=== PATIENT | female | born 1980 | race Caucasian/White ===

== ENCOUNTER 2023-06-21 13:21 | Observation (INO) | payer BC ==
--- NOTE | 2023-06-21 14:17 | ED ---
Abdominal Pain HPI - General Source: patient, RN notes reviewed Mode of arrival: wheelchair Limitations: no limitations - History of Present Illness MD Complaint: abdominal pain <Jeannie Melendez - Last Filed: 06/21/23 14:15> - General Source: patient, RN notes reviewed Limitations: no limitations <Jasmin Myers - Last Filed: 06/21/23 18:38> <Neo Jenkins - Last Filed: 06/21/23 21:19> - General Chief Complaint: Abdominal Pain Stated Complaint: ABD Pain, Vomiting Time Seen by Provider: 06/21/23 14:12 - History of Present Illness Initial Comments: This is a 43-year-old female who presents to the emergency department for nausea, vomiting, and abdominal pain. States that she developed generalized abdominal pain starting this morning with the nausea and vomiting. Denies any blood in her vomit or changes in bowel/bladder habits. Also denies any fevers or chills. (Jeannie Melendez) Patient is a pleasant 43-year-old female presenting to the emergency room with complaints of severe abdominal pain which is not generalized however began in the left lower quadrant with associated nausea and vomiting. She has not had a bowel movement yesterday but this is not a common for her and she denies any concerns for constipation. She has not had any diarrhea. She reports that the symptoms have gotten progressively worse throughout the day and that her emesis is bilingual color with no blood or coffee grounds noted. She denies any other complaints or concerns including any chest pain, shortness of breath, dysuria, hematuria, urinary frequency, altered mental status, fevers or chills. She is due for her menstrual cycle at the end of the month and her partner had a vasectomy. She is immune compromised as she is on tamoxifen for history of [place] cancer. She has no other significant past medical history. (Jasmin Myers) - Related Data Home Medications Medication Instructions Recorded Confirmed Cholecalciferol [Vitamin D3 (25 25 mcg PO DAILY 06/21/23 06/21/23 Mcg = 1000 Iu)] Lisdexamfetamine Dimesylate 40 mg PO DAILY 06/21/23 06/21/23 [Vyvanse] Tamoxifen Citrate [Nolvadex] 20 mg PO DAILY 06/21/23 06/21/23 Allergies Allergy/AdvReac Type Severity Reaction Status Date / Time No Known Allergies Allergy Verified 06/21/23 19:31 Review of Systems ROS Other: All systems not noted in ROS Statement are negative. <Jeannie Melendez - Last Filed: 06/21/23 14:15> ROS Other: All systems not noted in ROS Statement are negative. <Jasmin Myers - Last Filed: 06/21/23 18:38> ROS Other: All systems not noted in ROS Statement are negative. <Neo Jenkins - Last Filed: 06/21/23 21:19> ROS Statement: Those systems with pertinent positive or pertinent negative responses have been documented in the HPI. Past Medical History Past Medical History: Cancer Additional Past Medical History / Comment(s): tamoxifan- breast cancer History of Any Multi-Drug Resistant Organisms: None Reported Additional Past Surgical History / Comment(s): D/C Past Psychological History: No Psychological Hx Reported Smoking Status: Never smoker Past Alcohol Use History: Occasional Past Drug Use History: None Reported <Jeannie Melendez - Last Filed: 06/21/23 14:15> Past Medical History: Cancer History of Any Multi-Drug Resistant Organisms: None Reported <Jasmin Myers - Last Filed: 06/21/23 18:38> General Exam Limitations: no limitations <Jeannie Melendez - Last Filed: 06/21/23 14:15> Limitations: no limitations General appearance: alert, in no apparent distress Head exam: Present: atraumatic, normocephalic, normal inspection Eye exam: Present: normal appearance, PERRL, EOMI. Absent: scleral icterus, conjunctival injection, periorbital swelling ENT exam: Present: normal exam, mucous membranes moist Neck exam: Present: normal inspection, full ROM Respiratory exam: Present: normal lung sounds bilaterally. Absent: respiratory distress, wheezes, rales, rhonchi, stridor Cardiovascular Exam: Present: regular rate, normal rhythm, normal heart sounds. Absent: systolic murmur, diastolic murmur, rubs, gallop, clicks GI/Abdominal exam: Present: soft, tenderness (Left lower quadrant), normal bowel sounds, other (Interval reassessment of the abdomen after computed tomography scan reveals resolution of left lower quadrant pain was severe right lower quadrant tenderness.). Absent: distended, guarding, rebound, rigid Extremities exam: Present: normal inspection. Absent: pedal edema, joint swelling Back exam: Present: normal inspection Neurological exam: Present: alert, oriented X3, CN II-XII intact Psychiatric exam: Present: normal affect, normal mood Skin exam: Present: warm, dry, intact, normal color. Absent: rash <Jasmin Myers - Last Filed: 06/21/23 18:38> - General Exam Comments Initial Comments: Visual Physical Exam Vital signs reviewed General: Well-appearing, nontoxic, no acute distress. Head: Normocephalic, atraumatic Eyes: PERRLA, EOMI ENT: Airway patent Chest: Nonlabored breathing Skin: No visual rash, normal skin tone Neuro: Alert and oriented 3 Musculoskeletal: No gross abnormalities (Jeannie Melendez) Course Vital Signs 06/21/23 06/21/23 06/21/23 13:22 13:26 13:27 Temperature 98.2 F Pulse Rate 61 Respiratory 16 16 Rate Blood Pressure 111/73 O2 Sat by Pulse 99 Oximetry 06/21/23 06/21/23 19:54 20:38 Temperature Pulse Rate 65 65 Respiratory 16 18 Rate Blood Pressure 99/62 100/60 O2 Sat by Pulse 100 98 Oximetry Medical Decision Making <Jeannie Melendez - Last Filed: 06/21/23 14:15> - Lab Data Result diagrams: 06/21/23 15:18 06/21/23 15:18 - Radiology Data Radiology results: report reviewed, image reviewed <Jasmin Myers - Last Filed: 06/21/23 18:38> - Lab Data Result diagrams: 06/21/23 15:18 06/21/23 15:18 - EKG Data -: EKG Interpreted by Me <Neo Jenkins - Last Filed: 06/21/23 21:19> - Medical Decision Making I performed the QuickNote portion of this chart. Signed Jeannie Melendez PA-C. (Jeannie Melendez) Was pt. sent in by a medical professional or institution ([facility], HEAD RIGGER, urgent care, hospital, or shelter...) When possible be specific @ -No Did you speak to anyone other than the patient for history (EMS, parent, family, police, friend...)? What history was obtained from this source @ -No Did you review nursing and triage notes (agree or disagree)? Why? @ -I reviewed and agree with nursing and triage notes Were old charts reviewed (outside hosp., previous admission, EMS record, old EKG, old radiological studies, urgent care reports/EKG's, shelter records)? Report findings @ -No old charts were reviewed Differential Diagnosis (chest pain, altered mental status, abdominal pain women, abdominal pain men, vaginal bleeding, weakness, fever, dyspnea, syncope, headache, dizziness, GI bleed, back pain, seizure, CVA, palpatations, mental health, musculoskeletal)? @ -Differential Abdominal Pain Women: Appendicitis, Cholecystitis, diverticulosis, ischemic bowel, pancreatitis, hepatitis, UTI, gastroenteritis, AAA, incarcerated hernia, bowel obstruction, constipation, inflammatory bowel, hepatitis, peptic ulcer disease, splenic infarction, perforated viscus, vulvitis, ovarian torsion, PID, kidney stone, roel centa abruption, this is not meant to be an all-inclusive list EKG interpreted by me (3pts min.). @ -None done X-rays interpreted by me (1pt min.). @ -None done CT interpreted by me (1pt min.). @ -None done U/S interpreted by me (1pt. min.). @ -None done What testing was considered but not performed or refused? (CT, X-rays, U/S, labs)? Why? @ -None What meds were considered but not given or refused? Why? @ -None Did you discuss the management of the patient with other professionals (professionals i.e. , PA, HEAD RIGGER, lab, RT, psych nurse, social science teacher, muffle worker, teacher, commanding officer traffic division, continuous pillowcase cutter)? Give summary @ -No Was smoking cessation discussed for >3mins.? @ -No Was critical care preformed (if so, how long)? @ -No Were there social determinants of health that impacted care today? How? (Homelessness, low income, unemployed, alcoholism, drug addiction, transportation, low edu. Level, literacy, decrease access to med. care, longterm, rehab)? @ -No Was there de-escalation of care discussed even if they declined (Discuss DNR or withdrawal of care, Hospice)? DNR status @ -No What co-morbidities impacted this encounter? (DM, HTN, Smoking, COPD, CAD, Ca ncer, CVA, ARF, Chemo, Hep., AIDS, mental health diagnosis, sleep apnea, morbid obesity)? @ -None Was patient admitted / discharged? Hospital course, mention meds given and route, prescriptions, significant lab abnormalities, going to OR and other pertinent info. @ -Triaging provider started workup and saline lock placement. Orders for CMP, CBC, amylase, lipase, lactic acid and urinalysis with reflex culture all ordered; will additionally add 4 plex and qualitative urine and continues to have nausea vomiting and abdominal pain will give 1 L IV fluid bolus along with Zofran for nausea and morphine for pain. Pain down to 3 out of 10 with morphine and nausea resolved. Tolerated IV fluid bolus well. Laboratory studies revealed elevated WBC of 16.5 with neutrophils at 15.3 and low lymphocytes of 0.6. Lactic acid is normal total bilirubin is elevated at 1.7 remaining liver enzymes AST ALT and alkaline phosphatase all normal. Amylase and lipase normal, sodium low at 136 other electrolytes are normal. No history of diverticulosis will proceed with CT of the abdomen and pelvis with contrast given leukocytosis with left lower quadrant pain initially that has now localized to the right lower quadrant. Computed tomography scan reveals early appendicitis which is clinically correlated findings. These findings were discussed with patient's at the bedside. Advise recommended admission for acute appendicitis with initiation of nothing by mouth status, IV hydration Zosyn antibiotic. My attending spoke with Dr. Potter regarding patient presentation recommendation for admission. Advised of orders placed. She has no further orders at this time. Will admit patient to medical surgical unit under general surgery for further evaluation and treatment of acute appendicitis. Undiagnosed new problem with uncertain prognosis? @ -No Drug Therapy requiring intensive monitoring for toxicity (Heparin, Nitro, Insulin, Cardizem)? @ -No Were any procedures done? @ -No Diagnosis/symptom? @ -Appendicitis Acute, or Chronic, or Acute on Chronic? @ -Acute Uncomplicated (without systemic symptoms) or Complicated (systemic symptoms)? @ -Complicated Side effects of treatment? @ -No Exacerbation, Progression, or Severe Exacerbation? @ -No Poses a threat to life or bodily function? How? (Chest pain, [place], [place], pneumonia, PE, COPD, DKA, ARF, appy, cholecystitis, CVA, Diverticulitis, Homicidal, Suicidal, threat to staff... and all critical care pts) @ Yes, at risk for worsening infection and perforation Case discussed with Dr. Jenkins. (Jasmin Myers) I spoke with the admitting physician, Dr. Dsouza who accepted the admission. Requested medicine be consulted which they were. Requested patient be made nothing by mouth except for popsicles and ice chips. Was in agreement with other treatment. Patient started on Zosyn as well as IV fluids. (Neo Jenkins) - Lab Data Lab Results 06/21/23 06/21/23 06/21/23 Range/Units 15:18 15:18 16:10 WBC 16.5 H (3.8-10.6) k/uL RBC 4.29 (3.80-5.40) m/uL Hgb 13.5 (11.4-16.0) gm/dL Hct 40.4 (34.0-46.0) % MCV 94.3 (80.0-100.0) fL MCH 31.5 (25.0-35.0) pg MCHC 33.4 (31.0-37.0) g/dL RDW 12.5 (11.5-15.5) % Plt Count 222 (150-450) k/uL MPV 8.2 Neutrophils % 93 % Lymphocytes % 3 % Monocytes % 3 % Eosinophils % 0 % Basophils % 0 % Neutrophils # 15.3 H (1.3-7.7) k/uL Lymphocytes # 0.6 L (1.0-4.8) k/uL Monocytes # 0.5 (0-1.0) k/uL Eosinophils # 0.1 (0-0.7) k/uL Basophils # 0.0 (0-0.2) k/uL Sodium 136 L (137-145) mmol/L Potassium 4.1 (3.5-5.1) mmol/L Chloride 103 (98-107) mmol/L Carbon Dioxide 25 (22-30) mmol/L Anion Gap 8 mmol/L BUN 12 (7-17) mg/dL Creatinine 0.66 (0.52-1.04) mg/dL Est GFR (CKD-EPI)AfAm >90 (>60 ml/min/1.73 sqM) Est GFR (CKD-EPI)NonAf >90 (>60 ml/min/1.73 sqM) Glucose 116 H (74-99) mg/dL Plasma Lactic Acid Forrest 0.7 (0.7-2.0) mmol/L Calcium 8.8 (8.4-10.2) mg/dL Total Bilirubin 1.7 H (0.2-1.3) mg/dL AST 33 (14-36) U/L ALT 23 (4-34) U/L Alkaline Phosphatase 55 (38-126) U/L Total Protein 7.4 (6.3-8.2) g/dL Albumin 4.1 (3.5-5.0) g/dL Amylase 56 (30-110) U/L Lipase 50 (23-300) U/L Urine Color Urine Appearance (Clear) Urine pH (5.0-8.0) Ur Specific [place] (1.001-1.035) Urine Protein (Negative) Urine Glucose (UA) (Negative) Urine Ketones (Negative) Urine Blood (Negative) Urine Nitrite (Negative) Urine Bilirubin (Negative) Urine Urobilinogen (<2.0) mg/dL Ur Leukocyte Esterase (Negative) Urine HCG, Qual (Not Detectd) Influenza Type A (PCR) (Not Detectd) Influenza Type B (PCR) (Not Detectd) RSV (PCR) (Not Detectd) SARS-CoV-2 (PCR) (Not Detectd) 06/21/23 06/21/23 06/21/23 Range/Units 16:10 17:04 17:04 WBC (3.8-10.6) k/uL RBC (3.80-5.40) m/uL Hgb (11.4-16.0) gm/dL Hct (34.0-46.0) % MCV (80.0-100.0) fL MCH (25.0-35.0) pg MCHC (31.0-37.0) g/dL RDW (11.5-15.5) % Plt Count (150-450) k/uL MPV Neutrophils % % Lymphocytes % % Monocytes % % Eosinophils % % Basophils % % Neutrophils # (1.3-7.7) k/uL Lymphocytes # (1.0-4.8) k/uL Monocytes # (0-1.0) k/uL Eosinophils # (0-0.7) k/uL Basophils # (0-0.2) k/uL Sodium (137-145) mmol/L Potassium (3.5-5.1) mmol/L Chloride (98-107) mmol/L Carbon Dioxide (22-30) mmol/L Anion Gap mmol/L BUN (7-17) mg/dL Creatinine (0.52-1.04) mg/dL Est GFR (CKD-EPI)AfAm (>60 ml/min/1.73 sqM) Est GFR (CKD-EPI)NonAf (>60 ml/min/1.73 sqM) Glucose (74-99) mg/dL Plasma Lactic Acid [place] (0.7-2.0) mmol/L Calcium (8.4-10.2) mg/dL Total Bilirubin (0.2-1.3) mg/dL AST (14-36) U/L ALT (4-34) U/L Alkaline Phosphatase (38-126) U/L Total Protein (6.3-8.2) g/dL Albumin (3.5-5.0) g/dL Amylase (30-110) U/L Lipase (23-300) U/L Urine Color Yellow Urine Appearance Clear (Clear) Urine pH 8.0 (5.0-8.0) Ur Specific [place] 1.026 (1.001-1.035) Urine Protein Trace H (Negative) Urine Glucose (UA) Negative (Negative) Urine Ketones 3+ H (Negative) Urine Blood Negative (Negative) Urine Nitrite Negative (Negative) Urine Bilirubin Negative (Negative) Urine Urobilinogen <2.0 (<2.0) mg/dL Ur Leukocyte Esterase Negative (Negative) Urine HCG, Qual Not Detected (Not Detectd) Influenza Type A (PCR) Not Detected (Not Detectd) Influenza Type B (PCR) Not Detected (Not Detectd) RSV (PCR) Not Detected (Not Detectd) SARS-CoV-2 (PCR) Not Detected (Not Detectd) - EKG Data EKG Comments: 12-lead Electrocardiogram Interpretation Note EKG was reviewed and interpreted by myself. 12-lead ECG performed at 1938 is interpreted by me as revealing normal sinus rhythm at a rate of 64 beats per minute. [place] is normal. GA interval is 146 ms, QRS duration is 80 ms, QTc is 410 ms.. There were no ST or T wave abnormalities to suggest myocardial ischemia or injury. R wave progression across the precordium was satisfactory. By my interpretation this EKG is non-diagnostic for acute ischemia. (Neo Jenkins) Disposition <Jeannie Melendez - Last Filed: 06/21/23 14:15> Time of Disposition: 18:56 <Jasmin Myers - Last Filed: 06/21/23 18:38> <Neo Jenkins - Last Filed: 06/21/23 21:19> Clinical Impression: Acute appendicitis Disposition: ADMITTED IP TO THIS HOSP Condition: Stable
[2023-06-21 15:34] LABS: Basophils % (A) 0 %; Eosinophils # (A) 0.1 k/uL (0-0.7); Eosinophils % (A) 0 %; HCT 40.4 % (34.0-46.0); HGB 13.5 gm/dL (11.4-16.0); Lymphocytes # (A) 0.6 k/uL (1.0-4.8); Lymphocytes % (A) 3 %; MCH 31.5 pg (25.0-35.0); MCHC 33.4 g/dL (31.0-37.0); MCV 94.3 fL (80.0-100.0); Mean Platelet Volume 8.2; Monocytes # (A) 0.5 k/uL (0-1.0); Monocytes % (A) 3 %; Neutrophils # (A) 15.3 k/uL (1.3-7.7); Neutrophils % (A) 93 %; Platelet Count 222 k/uL (150-450); RBC 4.29 m/uL (3.80-5.40); RDW 12.5 % (11.5-15.5); WBC 16.5 k/uL (3.8-10.6)
[2023-06-21 15:43] LABS: ALT 23 U/L (4-34); AST 33 U/L (14-36); African American GFR (CKD) >90 (>60 ml/min/1.73 sqM); Albumin 4.1 g/dL (3.5-5.0); Alkaline Phosphatase 55 U/L (38-126); Amylase 56 U/L (30-110); Anion Gap 8 mmol/L; Blood Urea Nitrogen 12 mg/dL (7-17); Calcium 8.8 mg/dL (8.4-10.2); Carbon Dioxide 25 mmol/L (22-30); Chloride 103 mmol/L (98-107); Glucose 116 mg/dL (74-99); Lipase 50 U/L (23-300); Non-African American GFR(CKD) >90 (>60 ml/min/1.73 sqM); Potassium 4.1 mmol/L (3.5-5.1); Sodium 136 mmol/L (137-145); Total Bilirubin 1.7 mg/dL (0.2-1.3); Total Protein 7.4 g/dL (6.3-8.2)
[2023-06-21] MEDS ORDERED: SODIUM CHLORIDE 0.9% 1,000 ML IV STA (15:51)
[2023-06-21] MEDS ORDERED: MORPHINE SULFATE 4 MG/ML SYRINGE IVP STA (15:51)
[2023-06-21] MEDS ORDERED: ONDANSETRON 4 MG/2 ML VIAL IVP STA (15:51)
[2023-06-21 17:11] LABS: Appearance,Urine Clear (Clear); Bilirubin,Urine Negative (Negative); Blood,Urine Negative (Negative); Color,Urine Yellow; Glucose,Urine (UA) Negative (Negative); Ketones,Urine 3+ (Negative); Leukocyte Esterase,Urine Negative (Negative); Nitrite,Urine Negative (Negative); Protein,Urine Trace (Negative); Specific Gravity,Urine 1.026 (1.001-1.035); Urobilinogen,Urine <2.0 mg/dL (<2.0)
--- NOTE | 2023-06-21 18:34 | CT ---
EXAMINATION TYPE: CT abdomen pelvis w con DATE OF EXAM: 06/21/2023 COMPARISON: Pain INDICATION: abdominal pain, vomiting DLP: 784 mGycm, Automated exposure control for dose reduction was used. CONTRAST: 100 mL of Isovue 300. Study performed without Oral Contrast TECHNIQUE: Axial images were obtained from above the diaphragm to the pubic rami in the axial plane a t 5 mm thick sections. Reconstructed images are reviewed on the computer in the coronal plane. FINDINGS: Limited CT sections are obtained the lung bases. The lung bases are clear. CT ABDOMEN: Liver: Normal Spleen: Normal Pancreas: Normal Adrenal glands: The adrenal glands are normal. Gallbladder: Normal Kidneys: No masses are evident. No hydronephrosis is present. Tiny cortical renal cysts on the left anterior mid to inferior pole Delayed images were obtained through the kidneys, which remain unrema rkable. Aorta: Vascular calcification is within the aorta. Inferior vena cava: Normal. CT PELVIS: Loops of bowel within the abdomen and pelvis are normal. Bowel is without oral contrast limiting evaluation. Mild Fecal debris is within the colon. No dilated loops of bowel are evident. Appendix: The appendix may be slightly prominent 1.1 cm. Minimal wall enhancement may be present. Rocael e mild inflammatory change may be near the distal appendix in the midline. Clinical consideration for early appendicitis is recommended, especially near the midline at the distal tip of the appendix. Urinary bladder: Normal. Genitourinary structures: Uterus is normal. There is a 1.8 cm right ovarian cyst. Osseous structures: No suspicious lytic or sclerotic lesions. IMPRESSIONS: 1. Some mild prominence of the appendix with wall enhancement and possible minimal adjacent inflamma tory changes near the distal tip may suggest early appendicitis. Clinical correlation and management is recommended. 2. Diverticulosis without acute diverticulitis.
[2023-06-21] MEDS ORDERED: ONDANSETRON 4 MG/2 ML VIAL IVP PRN (18:44)
[2023-06-21] MEDS ORDERED: HYDROcodone/APAP 5-325MG 1 EACH TAB PO PRN (18:44)
[2023-06-21] MEDS ORDERED: NALOXONE 0.4 MG/ML 1 ML VIAL IV PRN (18:44)
[2023-06-21] MEDS: SODIUM CHLORIDE 0.9% 1,000 ML IV SCH (19:10)
[2023-06-21] MEDS: MORPHINE SULFATE 4 MG/ML SYRINGE IV PRN (20:31)
[2023-06-21] MEDS ORDERED: PIPERACILLIN-TAZOBACTAM 3.375 GM in SODIUM CHLORIDE 0.9% 100 ML IVPB SCH (22:00)
[2023-06-22] MEDS: MORPHINE SULFATE 4 MG/ML SYRINGE IV PRN ×2 (04:11→09:15)
[2023-06-22] MEDS: SODIUM CHLORIDE 0.9% 1,000 ML IV SCH ×3 (05:51→17:32)
[2023-06-22] MEDS: PIPERACILLIN-TAZOBACTAM 3.375 GM in SODIUM CHLORIDE 0.9% 100 ML IVPB SCH ×2 (08:32→17:45)
--- NOTE | 2023-06-22 11:36 | P.GSHP ---
History of Present Illness H&P Date: 06/22/23 CHIEF COMPLAINT: Right lower quadrant abdominal pain with appendicitis for over 1 day. HISTORY OF PRESENT ILLNESS: The patient is a 43-year-old female who presents with over 1.5 day history of periumbilical with right lower quadrant abdominal pain that is crampy dull ache in nature. No reports of prior abdominal pain. She states the intensity of the pain is moderate. Her presented with CT abdomen and pelvis consistent with dilated appendix suspicious for appendicitis hence general surgery admission. PAST MEDICAL HISTORY: See list and reviewed PAST SURGICAL HISTORY: See list and reviewed CURRENT MEDICATIONS: See list and reviewed ALLERGIES: See list and reviewed SOCIAL HISTORY: See list and reviewed FAMILY HISTORY: See list and reviewed REVIEW OF ORGAN SYSTEMS: CONSTITUTIONAL: Present fever, no chills. Denies recent weight loss. HEENT: Denies any trouble with vision, hearing or nosebleeds. No difficulty swallowing. LYMPHATIC: The patient denies any lumps and bumps around the neck. ENDOCRINE: Denies any thyroid disorders. Denies any blood sugar glucose intolerance. RESPIRATORY: Denies shortness of breath including chronic cough. CARDIOVASCULAR: Denies history of chest pain with exertion. GASTROINTESTINAL: Denies regurgitation of bile at night as well as intermittent nausea. No blood in stools. GENITOURINARY: Denies any blood in urine or increased urinary frequency. History of D&C. MUSCULOSKELETAL: Denies current joint arthritis. NEUROLOGIC: Denies any numbness or tingling along the distal extremities. No seizure disorders or headaches. PSYCHIATRIC: Denies any depression or suicidal ideation. HEMATOLOGIC: Denies any abnormal bleeding or bruising. BREAST: Lumpectomy for breast cancer. On tamoxifen. PHYSICAL EXAMINATION: VITALS: Reviewed. GENERAL: Well-developed and in no acute distress. Pleasant. HEENT: No sclera icterus. Extraocular movements grossly intact. Moist buccal mucosa. Head is atraumatic, normocephalic. Hears conversational speech. No nasal drainage. NECK: Supple without lymphadenopathy. No JV distention. CHEST: Non-labored respirations and equal bilateral excursions. CARDIOVASCULAR: Regular rate and rhythm. Palpable 2+ radial pulses. ABDOMEN: Soft, tender at the right lower quadrant without guarding. MUSCULOSKELETAL: No clubbing, cyanosis or edema. NEUROLOGIC: No focal or lateralizing signs. PSYCH: Appropriate affect. Alert and oriented to person, place and time. SKIN: Well perfused. Good skin turgor. LABS: Reviewed. White blood cell count elevated over 16,000. STUDIES: CT of the abdomen and pelvis independently reviewed without free fluid or signs of ruptured appendicitis. This is my independent interpretation. ASSESSMENT: 1. Appendicitis. 2. Leukocytosis 3. Breast cancer on tamoxifen PLAN: 1. I have discussed benefits and risks of robotic appendectomy. 2. Bilateral SCDs. 3. Antibiotics intravenous 4. She is elevated risk for DVTs with personal history of breast cancer and presently on tamoxifen Thank you very much for allowing me to participate in the care of your patient. Past Medical History Past Medical History: Cancer Additional Past Medical History / Comment(s): tamoxifan - breast cancer; chronic bradycardia, not on meds; ovarian cyst History of Any Multi-Drug Resistant Organisms: None Reported Past Surgical History: Breast Surgery Additional Past Surgical History / Comment(s): D&C, left breast lumpectomy; radiation r/t breast CA Past Anesthesia/Blood Transfusion Reactions: No Reported Reaction Past Psychological History: No Psychological Hx Reported Smoking Status: Never smoker Past Alcohol Use History: Occasional Past Drug Use History: None Reported Medications and Allergies Home Medications Medication Instructions Recorded Confirmed Type Cholecalciferol [Vitamin D3 (25 25 mcg PO DAILY 06/21/23 06/21/23 History Mcg = 1000 Iu)] Lisdexamfetamine Dimesylate 40 mg PO DAILY 06/21/23 06/21/23 History [Vyvanse] Tamoxifen Citrate [Nolvadex] 20 mg PO DAILY 06/21/23 06/21/23 History Allergies Allergy/AdvReac Type Severity Reaction Status Date / Time No Known Allergies Allergy Verified 06/21/23 19:31 Surgical - Exam Vital Signs Resp 16 06/21/23 13:22 Results - Labs 06/21/23 15:18 06/21/23 15:18 Abnormal Lab Results - Last 24 Hours (Table) 06/21/23 06/21/23 06/21/23 Range/Units 15:18 15:18 17:04 WBC 16.5 H (3.8-10.6) k/uL Neutrophils # 15.3 H (1.3-7.7) k/uL Lymphocytes # 0.6 L (1.0-4.8) k/uL Sodium 136 L (137-145) mmol/L Glucose 116 H (74-99) mg/dL Total Bilirubin 1.7 H (0.2-1.3) mg/dL Urine Protein Trace H (Negative) Urine Ketones 3+ H (Negative) Diabetes panel 06/21/23 Range/Units 15:18 Sodium 136 L (137-145) mmol/L Potassium 4.1 (3.5-5.1) mmol/L Chloride 103 (98-107) mmol/L Carbon Dioxide 25 (22-30) mmol/L BUN 12 (7-17) mg/dL Creatinine 0.66 (0.52-1.04) mg/dL Glucose 116 H (74-99) mg/dL Calcium 8.8 (8.4-10.2) mg/dL AST 33 (14-36) U/L ALT 23 (4-34) U/L Alkaline Phosphatase 55 (38-126) U/L Total Protein 7.4 (6.3-8.2) g/dL Albumin 4.1 (3.5-5.0) g/dL Calcium panel 06/21/23 Range/Units 15:18 Calcium 8.8 (8.4-10.2) mg/dL Albumin 4.1 (3.5-5.0) g/dL Pituitary panel 06/21/23 Range/Units 15:18 Sodium 136 L (137-145) mmol/L Potassium 4.1 (3.5-5.1) mmol/L Chloride 103 (98-107) mmol/L Carbon Dioxide 25 (22-30) mmol/L BUN 12 (7-17) mg/dL Creatinine 0.66 (0.52-1.04) mg/dL Glucose 116 H (74-99) mg/dL Calcium 8.8 (8.4-10.2) mg/dL Adrenal panel 06/21/23 Range/Units 15:18 Sodium 136 L (137-145) mmol/L Potassium 4.1 (3.5-5.1) mmol/L Chloride 103 (98-107) mmol/L Carbon Dioxide 25 (22-30) mmol/L BUN 12 (7-17) mg/dL Creatinine 0.66 (0.52-1.04) mg/dL Glucose 116 H (74-99) mg/dL Calcium 8.8 (8.4-10.2) mg/dL Total Bilirubin 1.7 H (0.2-1.3) mg/dL AST 33 (14-36) U/L ALT 23 (4-34) U/L Alkaline Phosphatase 55 (38-126) U/L Total Protein 7.4 (6.3-8.2) g/dL Albumin 4.1 (3.5-5.0) g/dL
[2023-06-22] MEDS ORDERED: HEPARIN SODIUM,PORCINE/PF 5,000 UNIT/0.5 ML SYRINGE SQ PRN (11:37)
[2023-06-22] MEDS ORDERED: LACTATED RINGERS 1,000 ML IV ONE ×3 (12:50→15:17)
[2023-06-22 13:06] LABS: African American GFR (CKD) >90 (>60 ml/min/1.73 sqM); Anion Gap 10 mmol/L; Blood Urea Nitrogen 9 mg/dL (7-17); Calcium 8.2 mg/dL (8.4-10.2); Carbon Dioxide 22 mmol/L (22-30); Chloride 105 mmol/L (98-107); Glucose 65 mg/dL (74-99); Non-African American GFR(CKD) 87 (>60 ml/min/1.73 sqM); Potassium 3.7 mmol/L (3.5-5.1); Sodium 137 mmol/L (137-145)
[2023-06-22] MEDS ORDERED: MIDAZOLAM 2 MG/2 ML VIAL IVP ONE (13:21)
[2023-06-22 13:30] LABS: Basophils % (A) 0 %; Eosinophils # (A) 0.1 k/uL (0-0.7); Eosinophils % (A) 1 %; HCT 34.9 % (34.0-46.0); HGB 11.9 gm/dL (11.4-16.0); Lymphocytes # (A) 1.5 k/uL (1.0-4.8); Lymphocytes % (A) 15 %; MCH 32.9 pg (25.0-35.0); MCV 96.6 fL (80.0-100.0); Mean Platelet Volume 8.6; Monocytes # (A) 0.3 k/uL (0-1.0); Monocytes % (A) 3 %; Neutrophils # (A) 7.7 k/uL (1.3-7.7); Neutrophils % (A) 80 %; Platelet Count 175 k/uL (150-450); RBC 3.61 m/uL (3.80-5.40); RDW 12.4 % (11.5-15.5); WBC 9.6 k/uL (3.8-10.6)
[2023-06-22] MEDS ORDERED: BUPIVACAINE (PF) 0.25% 30 ML VIAL SQ ONE ×2 (13:44→14:12)
[2023-06-22] MEDS ORDERED: GLYCOPYRROLATE 0.2 MG/ML 2 ML VIAL ONE ×2 (13:50)
[2023-06-22] MEDS ORDERED: PROPOFOL 10 MG/ML 20 ML VIAL IV ONE ×2 (13:50)
[2023-06-22] MEDS ORDERED: SUCCINYLCHOLINE CHLORIDE 200 MG/10 ML VIAL IV ONE ×2 (13:50)
[2023-06-22] MEDS ORDERED: NEOSTIGMINE 1 MG/ML 10 ML VIAL ONE ×2 (13:50)
[2023-06-22] MEDS ORDERED: ceFAZolin 1,000 MG VIAL ONE (13:50)
[2023-06-22] MEDS ORDERED: LIDOCAINE 2% INJ 20 MG/ML (2 ML VIAL) ONE ×2 (13:50)
[2023-06-22] MEDS ORDERED: fentaNYL (PF) 50 MCG/ML 2 ML AMP ONE ×2 (13:50)
[2023-06-22] MEDS ORDERED: ROCURONIUM 10 MG/ML (5 ML VIAL) IV ONE ×2 (13:50)
[2023-06-22] MEDS ORDERED: SODIUM CHLORIDE 0.9% 100 ML BAG ONE (13:50)
[2023-06-22] MEDS ORDERED: MIDAZOLAM 2 MG/2 ML VIAL ONE ×2 (13:50)
[2023-06-22] MEDS ORDERED: SODIUM CHLORIDE 0.9% 50 ML with ceFAZolin 2,000 MG IV ONE ×2 (14:11)
--- NOTE | 2023-06-22 14:42 | P.CONS ---
History of Present Illness - Reason for Consult Consult date: 06/22/23 Abdominal pain, medical management - Chief Complaint Abdominal pain - History of Present Illness * 43-year-old lady with past medical history significant for breast cancer in remission, history of lumpectomy, presented to the emergency department with complaints of left lower quadrant abdominal pain * Patient was noted to have periumbilical complaint which moved from left lower quadrant to right lower quadrant. Patient explained the pain as dull and crampy in nature. * At the time of presentation in ER patient had a CBC done which showed elevated leukocytosis, CT abdomen and pelvis was obtained which was consistent with dilated appendix suspicion for appendicitis * Patient was started on IV fluid, and was started on IV antibiotics and made nothing by mouth with general surgery being the primary service * Medicine team was consulted for medical management at this time patient okay to proceed with robotic appendicectomy * Postprocedure patient will need DVT prophylaxis once cleared by surgery REVIEW OF SYSTEMS: CONSTITUTIONAL: No fever, no malaise, no fatigue. HEENT: No recent visual problems or hearing problems. Denied any sore throat. CARDIOVASCULAR: No chest pain, orthopnea, PND, no palpitations, no syncope. PULMONARY: No shortness of breath, no cough, no hemoptysis. GASTROINTESTINAL: Abdominal pain NEUROLOGICAL: No headaches, no weakness, no numbness. HEMATOLOGICAL: Denies any bleeding or petechiae. GENITOURINARY: Denies any burning micturition, frequency, or urgency. MUSCULOSKELETAL/RHEUMATOLOGICAL: Denies any joint pain, swelling, or any muscle pain. ENDOCRINE: Denies any polyuria or polydipsia. PHYSICAL EXAMINATION: GENERAL: The patient is alert and oriented x3, not in any acute distress. Well developed, well nourished. HEENT: Pupils are round and equally reacting to light. EOMI. No scleral icterus. No conjunctival pallor. Normocephalic, atraumatic. No pharyngeal erythema. No thyromegaly. CARDIOVASCULAR: S1 and S2 present. No murmurs, rubs, or gallops. PULMONARY: Chest is clear to auscultation, no wheezing or crackles. ABDOMEN: Soft, nontender, nondistended, normoactive bowel sounds. No palpable organomegaly. MUSCULOSKELETAL: No joint swelling or deformity. EXTREMITIES: No cyanosis, clubbing, or pedal edema. NEUROLOGICAL: Gross neurological examination did not reveal any focal deficits. SKIN: No rashes. Past Medical History Past Medical History: Cancer Additional Past Medical History / Comment(s): tamoxifan - breast cancer; chronic bradycardia, not on meds; ovarian cyst History of Any Multi-Drug Resistant Organisms: None Reported Past Surgical History: Breast Surgery Additional Past Surgical History / Comment(s): D&C, left breast lumpectomy; radiation r/t breast CA Past Anesthesia/Blood Transfusion Reactions: No Reported Reaction Past Psychological History: No Psychological Hx Reported Smoking Status: Never smoker Past Alcohol Use History: Occasional Past Drug Use History: None Reported Medications and Allergies Home Medications Medication Instructions Recorded Confirmed Type Cholecalciferol [Vitamin D3 (25 25 mcg PO DAILY 06/21/23 06/21/23 History Mcg = 1000 Iu)] Lisdexamfetamine Dimesylate 40 mg PO DAILY 06/21/23 06/21/23 History [Vyvanse] Tamoxifen Citrate [Nolvadex] 20 mg PO DAILY 06/21/23 06/21/23 History Allergies Allergy/AdvReac Type Severity Reaction Status Date / Time No Known Allergies Allergy Verified 06/21/23 19:31 Physical Exam Vitals: Vital Signs Temp Pulse Pulse Resp BP BP Pulse Ox 06/22/23 13:25 59 L 14 89/55 99 06/22/23 13:05 65 18 94/55 99 06/22/23 11:21 97.9 F 65 18 96/59 96 06/22/23 07:30 98.7 F 72 18 98/56 97 06/22/23 01:19 98.4 F 67 16 96/56 95 06/22/23 00:31 16 06/21/23 21:19 98.3 F 61 16 103/64 95 06/21/23 20:38 65 18 100/60 98 06/21/23 19:54 65 16 99/62 100 Intake and Output 06/21/23 06/22/23 06/22/23 22:59 06:59 14:59 Intake Total 950 Output Total 5 Balance 945 Intake: IV 950 Output: Estimated Blood Loss 5 Other: Voiding Method Toilet # Voids 1 Weight 77.111 kg 77.111 kg Results CBC & Chem 7: 06/22/23 12:29 06/22/23 12:29 Labs: Abnormal Lab Results - Last 24 Hours (Table) 06/21/23 06/21/23 06/21/23 Range/Units 15:18 15:18 17:04 WBC 16.5 H (3.8-10.6) k/uL RBC (3.80-5.40) m/uL Neutrophils # 15.3 H (1.3-7.7) k/uL Lymphocytes # 0.6 L (1.0-4.8) k/uL Sodium 136 L (137-145) mmol/L Glucose 116 H (74-99) mg/dL Calcium (8.4-10.2) mg/dL Total Bilirubin 1.7 H (0.2-1.3) mg/dL Urine Protein Trace H (Negative) Urine Ketones 3+ H (Negative) 06/22/23 06/22/23 Range/Units 12:29 12:29 WBC (3.8-10.6) k/uL RBC 3.61 L (3.80-5.40) m/uL Neutrophils # (1.3-7.7) k/uL Lymphocytes # (1.0-4.8) k/uL Sodium (137-145) mmol/L Glucose 65 L (74-99) mg/dL Calcium 8.2 L (8.4-10.2) mg/dL Total Bilirubin (0.2-1.3) mg/dL Urine Protein (Negative) Urine Ketones (Negative) Assessment and Plan Assessment: Assessment and plan * Acute appendicitis * Leukocytosis likely reactive * History of breast cancer in remission * Patient seen by general surgery, continue patient on IV Zosyn, follow-up on lactate levels * Patient nothing by mouth in anticipation of surgical intervention * Continue patient with fluid resuscitation * Patient noted to have low blood pressure however asymptomatic, per patient she typically runs lower at home * Continue pain control with [place], morphine, Zofran as needed for nausea * CODE STATUS is full code
[2023-06-22] MEDS ORDERED: HYDROmorphone 1 MG/ML 1 ML SYRINGE IVP PRN (14:43)
[2023-06-22] MEDS ORDERED: ACETAMINOPHEN IV (For NPO) 1,000 MG in EMPTY BAG 1 BAG IVPB ONE (14:43)
[2023-06-22] MEDS ORDERED: HYDROmorphone 0.5 MG/0.5 ML SYRINGE IVP ONE (15:34)
[2023-06-22] MEDS: KETOROLAC 15 MG/ML 1 ML VIAL IVP SCH ×2 (17:32→23:49)
[2023-06-22] MEDS ORDERED: SCOPOLAMINE 1 MG/72 HR PATCH TRANSDERM STA (18:11)
[2023-06-22] MEDS ORDERED: SODIUM CHLORIDE 0.9% 2,000 ML IV ONE (18:11)
[2023-06-22] MEDS: HEPARIN SODIUM,PORCINE 5,000 UNIT/ML 1 ML VIAL SQ SCH (20:39)
[2023-06-22] MEDS: ONDANSETRON 4 MG/2 ML VIAL IVP SCH (23:49)
[2023-06-23] MEDS: PIPERACILLIN-TAZOBACTAM 3.375 GM in SODIUM CHLORIDE 0.9% 100 ML IVPB SCH ×2 (00:42→08:54)
[2023-06-23] MEDS: ONDANSETRON 4 MG/2 ML VIAL IVP SCH ×2 (01:01→05:47)
[2023-06-23] MEDS: SODIUM CHLORIDE 0.9% 1,000 ML IV SCH ×2 (03:47→08:54)
[2023-06-23] MEDS: KETOROLAC 15 MG/ML 1 ML VIAL IVP SCH (05:44)
[2023-06-23 07:57] VITALS: RESP 18
[2023-06-23] MEDS: HEPARIN SODIUM,PORCINE 5,000 UNIT/ML 1 ML VIAL SQ SCH (08:53)
[2023-06-23 09:05] LABS: Basophils # (A) 0.04 X 10*3/uL (0.00-0.10); Basophils % (A) 0.6 %; Eosinophils # (A) 0.06 X 10*3/uL (0.04-0.35); Eosinophils % (A) 0.9 %; HCT 30.8 % (37.2-46.3); HGB 9.7 d/dL (12.0-15.0); Lymphocytes # (A) 1.31 X 10*3/uL (0.90-5.00); Lymphocytes % (A) 19.9 %; MCH 30.1 pg (27.0-32.0); MCHC 31.5 d/dL (32.0-37.0); MCV 95.7 FL (80.0-97.0); Mean Platelet Volume 11.1 FL (9.5-12.2); Monocytes # (A) 0.39 X 10*3/uL (0.20-1.00); Monocytes % (A) 5.9 %; NRBC Per 100 WBC 0 X 10*3/uL (0.00-0.01); Neutrophils # (A) 4.76 X 10*3/uL (1.80-7.70); Neutrophils % (A) 72.5 %; Platelet Count 173 X 10*3/uL (140-440); RBC 3.22 X 10*6/uL (4.10-5.20); RDW 12.2 % (11.5-14.5); WBC 6.57 X 10*3/uL (4.50-10.00)
[2023-06-23 11:56] VITALS: BP 97/61; PULSE 61; TEMP 98.1
--- NOTE | 2023-06-23 12:27 | P.DS ---
Providers Date of admission: 06/21/23 19:58 Expected date of discharge: 06/23/23 Attending physician: Lashonda Dsouza Consults: 06/21/23 19:03 Consult Physician Stat Consulting Provider: Jewel Saul Consult Reason/Comments: Medical management Do you want consulting provider notified?: Yes 06/22/23 11:37 Consult Physician Routine Consulting Provider: [facility] Consult Reason/Comments: [facility] Do you want consulting provider notified?: Yes Primary care physician: Physician Nonstaff Assessment: Labs reviewed with anemia, expected after fluid boluses and surgery Avoiding NSAIDs described Incisions are clean dry and intact, no bruising Appropriate left upper quadrant incisional pain. WBC resolved Discharge instructions including lifting and swimming reviewed for restrictions of 2 weeks. Stable for discharge without antibiotics All questions answered. Patient Condition at Discharge: Stable Plan - Discharge Summary New Discharge Prescriptions: No Action Tamoxifen Citrate [Nolvadex] 20 mg PO DAILY Lisdexamfetamine Dimesylate [Vyvanse] 40 mg PO DAILY Cholecalciferol [Vitamin D3 (25 Mcg = 1000 Iu)] 25 mcg PO DAILY Discharge Medication List Cholecalciferol [Vitamin D3 (25 Mcg = 1000 Iu)] 25 mcg PO DAILY 06/21/23 [History] Lisdexamfetamine Dimesylate [Vyvanse] 40 mg PO DAILY 06/21/23 [History] Tamoxifen Citrate [Nolvadex] 20 mg PO DAILY 06/21/23 [History] Follow up Appointment(s)/Referral(s): None,Stated [REFERRING] - 1-2 days
--- NOTE | 2023-06-23 13:51 | P.PN ---
Subjective Progress Note Date: 06/23/23 43-year-old lady with past medical history significant for breast cancer in remission, history of lumpectomy, presented to the emergency department with complaints of left lower quadrant abdominal pain * Patient was noted to have periumbilical complaint which moved from left lower quadrant to right lower quadrant. Patient explained the pain as dull and crampy in nature. * At the time of presentation in ER patient had a CBC done which showed elevated leukocytosis, CT abdomen and pelvis was obtained which was consistent with dilated appendix suspicion for appendicitis * Patient was started on IV fluid, and was started on IV antibiotics and made nothing by mouth with general surgery being the primary service * Medicine team was consulted for medical management, she'll remained stable postoperatively Objective - Vital Signs Vital signs: Vital Signs Temp 98.1 F 06/23/23 11:25 Pulse 61 06/23/23 11:25 Resp 18 06/23/23 11:25 BP 97/61 06/23/23 11:25 Pulse Ox 100 06/23/23 11:25 FiO2 Intake & Output 06/22/23 06/23/23 06/23/23 18:59 06:59 18:59 Intake Total 2049 Output Total Balance 2044 Weight 77.111 kg Intake: IV 1300 Intake, IV Titration 750 Amount Piperacillin-Tazobactam 3 100 .375 gm In Sodium Chloride 0.9% 100 ml @ 25 mls/hr IVPB Q8H MELVIN Rx#: [id number] Sodium Chloride 0.9% 1, 650 000 ml @ 130 mls/hr IV . Q7H42M MELVIN Rx#:[id number] Output: Estimated Blood Loss 5 Other: Voiding Method Toilet Toilet # Voids 1 - Exam PHYSICAL EXAMINATION: GENERAL: The patient is alert and oriented x3, not in any acute distress. Well developed, well nourished. HEENT: Pupils are round and equally reacting to light. EOMI. No scleral icterus. No conjunctival pallor. Normocephalic, atraumatic. No pharyngeal erythema. No thyromegaly. CARDIOVASCULAR: S1 and S2 present. No murmurs, rubs, or gallops. PULMONARY: Chest is clear to auscultation, no wheezing or crackles. ABDOMEN: Soft, nontender, nondistended, normoactive bowel sounds. No palpable organomegaly. Surgical incision intact no drainage no bleeding MUSCULOSKELETAL: No joint swelling or deformity. EXTREMITIES: No cyanosis, clubbing, or pedal edema. NEUROLOGICAL: Gross neurological examination did not reveal any focal deficits. SKIN: No rashes. - Labs CBC & Chem 7: 06/23/23 06:23 08 12:29 Labs: Abnormal Lab Results - Last 24 Hours (Table) 06/23/23 Range/Units 06:23 RBC 3.22 L (4.10-5.20) X 10*6/uL Hgb 9.7 L (12.0-15.0) d/dL Hct 30.8 L (37.2-46.3) % MCHC 31.5 L (32.0-37.0) d/dL Assessment and Plan Assessment: Assessment and plan * Acute appendicitis * Leukocytosis likely reactive * History of breast cancer in remission * Patient seen by general surgery, received IV Zosyn while inpatient, seen postoperatively postoperative day one able to tolerate diet and okay to discharge home * CODE STATUS is full code
--- NOTE | 2023-06-24 18:04 | P.OP ---
Date of Procedure: 06/22/23 Description of Procedure: SURGEON: CUAUHTEMOC VILLALBA MD Preoperative Diagnosis: 1. Acute appendicitis Postoperative Diagnosis: 1. Acute appendicitis, retrocecal with periappendicitis Procedure(s) Performed: 1. Robotic-assisted daVinci Xi laparoscopic appendectomy Anesthesia: GETA, local Estimated Blood Loss (ml): 5 Pathology: other (appendix) Condition: stable Disposition: floor Operative Findings: 1. Acute appendicitis without rupture with periappendicitis, retrocecal 2. Terminal ileum unremarkable 3. Cecum unremarkable INDICATIONS: The patient is a 43-year-old male who presents with acute appendicitis. Benefits and risks, including infection, open surgery, and bleeding for additional surgery was discussed at length. Informed consent was obtained. All questions of the patient and family were answered. DESCRIPTION: The patient was transferred to the operating room and placed in supine position. The patient had previously voided. The abdomen was then prepped and draped in standard sterile fashion as [place] was placed along the abdomen to minimize any contamination of skin floor. After a timeout protocol was performed, attention was then brought to the left upper quadrant whereby a 0 degree 5 mm laparoscopic trocar entry was performed. The abdominal cavity was entered and insufflated to 12 mmHg pressure, which was tolerated well. Diagnostic laparoscopy demonstrated no injury to bowel, viscera or mesentery. Next a robotic 8-mm trocar was placed along the left lower quadrant, 10-cm lateral to the midline. A 12 mm port was placed along the left upper quadrant and another 8-mm port left lateral abdominal wall. Ports were placed 8 cm apart from each other including 15-20 cm away from the target anatomy of the right pelvis. The patient was then placed in Trendelenburg position, at least 14 down and right side up at least 7. The robotic da Christ XI system was primed and docked from the left side of the patient. Using atraumatic graspers and vessel sealer, the robotic system was docked and primed as described. Instruments were interchanged by the trading assistant including graspers, robotic stapler and vessel sealer. Next, attention was brought to identify the cecum. A systematic view within the abdominal cavity was started with the small bowel which was unremarkable. The base of the cecum was unremarkable. The appendix was retrocecal coursing towards right upper quadrant behind the ascending colon with additional dissection required. The body of the appendix was moderately dilated with moderate periappendicitis. No perforation was identified. The appendix was dissected free from its surrounding tissues. Blue 45 mm robotic staple loads were fired along the base of the appendix. The staple line was hemostatic. Hemostasis was checked prior to undocking the robot. The robot was undocked. I re-scrubbed into the case. The specimen was removed from the abdominal cavity with an Endo Catch bag through the 12 mm trocar at the left upper quadrant. All instruments and pneumoperitoneum were evacuated from the abdominal cavity. Local anesthetic was infiltrated to all wounds for postop analgesia. All incisions were also cleansed with diluted hydrogen peroxide. The incisions were closed with 4-0 Monocryl. Exofin glue was applied to the rest of the skin incisions. The patient had tolerated the procedure well. The patient was extubated successfully. The patient was transferred to the postanesthesia care unit in stable condition.
== END 2023-06-23 13:41 | disposition home or self-care (01) ==
LOC: EC 13:21 → INTOOBSV 19:58 → 5NMEDONC 19:58 → UNDODISIN 06-23 13:41
PROVIDERS: ADMIT Surgery Plastic and Reconstructive Surgery; ATTEND Surgery Plastic and Reconstructive Surgery
DX: K35.80 Unspecified acute appendicitis (principal); K57.90 Diverticulosis of intestine, part unspecified, without perforation or abscess without bleeding; R03.1 Nonspecific low blood-pressure reading; R00.1 Bradycardia, unspecified; Z20.822 Contact with and (suspected) exposure to COVID-19; Z79.810 Long term (current) use of selective estrogen receptor modulators (SERMs); Z79.899 Other long term (current) drug therapy; Z85.3 Personal history of malignant neoplasm of breast; Z92.3 Personal history of irradiation; Z98.890 Other specified postprocedural states; Z80.9 Family history of malignant neoplasm, unspecified
CPT/HCPCS: 44970; S2900; 36415; 74177; 80048; 80053; 81003; 81025; 82150; 83605; 83690; 85025; 87636; 88304; 93005; 96361; 96372; 96374; 96375; 96376; 99285

== ENCOUNTER → 2024-02-17 | Outpatient (CLI) | payer BC ==
--- NOTE | 2024-02-18 14:19 | MM ---
Reason for Exam: Screening (asymptomatic). Last mammogram was performed 1 year(s) and 5 month(s) ago. Patient History: Menarche at age 12. First Full-Term at age 19. Premenopausal. Breast cancer, left, age 41. Hormonal Contraceptives, from age 18 until age 40. 2021, Lumpectomy on the Left side. 2021, Radiation Therapy on the left side. Paternal grandmother had breast cancer, age 75. Prior Study Comparison: 09/06/2021 Left Diagnostic Mammogram, Unknown. 02/06/2022 Left Diagnostic Mammogram, Unknown. 09/18/2022 Left Diagnostic Mammogram, [facility]. Tissue Density: There are scattered areas of fibroglandular density. Findings: Analyzed By CAD. Right breast: There is no suspicious group of microcalcifications or new suspicious mass. Left breast: There is no suspicious group of microcalcifications or new suspicious mass. Overall Assessment: Negative, BI-RAD 1 Management: Screening Mammogram of both breasts in [address] [facility] will attempt to contact patient to return for supplemental views and ultrasound if indicated. Patient should continue monthly self-breast exams. A clinical breast exam by your physician is recommended on an annual basis. This exam should not preclude additional follow-up of suspicious palpable abnormalities. Note on Deena scores and lifetime risk: 1. A Deena score greater than 3% is considered moderate risk. If this is the case, consider specialist referral to assess eligibility for a risk reducing agent. 2. If overall lifetime risk for the development of breast cancer is 20% or higher, the patient may qualify for future screening with alternating mammogram and breast MRI. Electronically signed and approved by: Emiliano Gutiérrez DO
== END | disposition home or self-care (01) ==
LOC: RADMAMWWP 16:24
PROVIDERS: ATTEND Internal Medicine
DX: Z12.31 Encounter for screening mammogram for malignant neoplasm of breast (principal); D05.12 Intraductal carcinoma in situ of left breast; J45.909 Unspecified asthma, uncomplicated; Z71.3 Dietary counseling and surveillance; Z80.3 Family history of malignant neoplasm of breast
CPT/HCPCS: 77063; 77067

== ENCOUNTER → 2024-07-18 | Outpatient (CLI) | payer BC ==
[2024-07-18 13:19] LABS: Basophils # (A) 0.02 X 10*3/uL (0.00-0.10); Basophils % (A) 0.4 %; Eosinophils # (A) 0.06 X 10*3/uL (0.04-0.35); Eosinophils % (A) 1.2 %; HCT 35.5 % (37.2-46.3); HGB 11.3 g/dL (12.0-15.0); Lymphocytes # (A) 1.69 X 10*3/uL (0.90-5.00); Lymphocytes % (A) 34.7 %; MCH 28.8 pg (27.0-32.0); MCHC 31.8 g/dL (32.0-37.0); MCV 90.3 FL (80.0-97.0); Mean Platelet Volume 11.5 FL (9.5-12.2); Monocytes # (A) 0.39 X 10*3/uL (0.20-1.00); NRBC Per 100 WBC 0 X 10*3/uL (0.00-0.01); Neutrophils % (A) 55.5 %; Platelet Count 247 X 10*3/uL (140-440); RBC 3.93 X 10*6/uL (4.10-5.20); RDW 12.7 % (11.5-14.5); WBC 4.87 X 10*3/uL (4.50-10.00)
[2024-07-18 13:55] LABS: ALT 22 U/L (8-44); AST 21 U/L (13-35); Albumin 4.3 g/dL (3.8-4.9); Albumin/Globulin Ratio 1.79 Ratio (1.60-3.17); Alkaline Phosphatase 44 U/L (41-126); BUN/Creat Ratio 9.56 Ratio (12.00-20.00); Blood Urea Nitrogen 8.6 mg/dL (9.0-27.0); Chloride 105 mmol/L (96-109); Chol/HDL Ratio 2.13 Ratio; Globulin 2.4 g/dL (1.6-3.3); Glucose 103 mg/dL (70-110); LDL Cholesterol,Calculated 70.5 mg/dL (0.0-131.0); Potassium 4.2 mmol/L (3.5-5.5); Sodium 138 mmol/L (135-145); Total Bilirubin 0.4 mg/dL (0.3-1.2); Total Protein 6.7 g/dL (6.2-8.2); VLDL Calculation 11.26 mg/dL (5.00-40.00)
== END ==
LOC: LABWHC1 08:04
PROVIDERS: ATTEND Family Medicine
DX: Z01.818 Encounter for other preprocedural examination (principal); Z79.899 Other long term (current) drug therapy; N94.6 Dysmenorrhea, unspecified
CPT/HCPCS: 36415; 80053; 80061; 82306; 84443; 85025; 86850; 86900; 86901; 87086

== ENCOUNTER 2024-07-27 05:51 | Day surgery (SDC) | payer BC ==
[2024-07-21 13:24] VITALS: BMI 25.7
[2024-07-27] MEDS: DEXAMETHASONE SOD PHOSPHATE 4 MG/ML 1 ML VIAL IV ONE (06:30)
[2024-07-27] MEDS: IV FLUID CONTINUATION 1,000 ML IV ONE (06:50)
[2024-07-27] MEDS: ONDANSETRON 4 MG/2 ML VIAL IVP ONE (06:52)
[2024-07-27] MEDS: MIDAZOLAM 2 MG/2 ML VIAL IV PRN (06:56)
[2024-07-27] MEDS ORDERED: HYDROmorphone 0.5 MG/0.5 ML SYRINGE IVP PRN (07:00)
[2024-07-27] MEDS: LACTATED RINGERS 1,000 ML IV SCH (07:03)
[2024-07-27] MEDS ORDERED: NALOXONE 0.4 MG/ML 1 ML VIAL IV PRN (07:08)
--- NOTE | 2024-07-27 07:08 | P.ANPRN ---
Procedure Note - Anesthesia - Epidural/Spinal Spinal Time Out Performed: Yes Date of Procedure: 07/27/24 Procedure Start Time: 06:55 Procedure Stop Time: 07:00 Location of Patient: PreOp Indication: Acute Post-Operative Pain, Analgesia, Requested by Surgeon Sedation Type: Sedate with meaningful contact maintained Preparation: Sterile Prep Position: Sitting Catheter: None Needle Guage: 25 Narrative: Duramorph 0.3mg. AttemptX1. L1-2 level needle Blood Aspirated: No Pain Paresthesia on Injection Noted: No Events: Uneventful and Well Tolerated
[2024-07-27] MEDS ORDERED: SUCCINYLCHOLINE CHLORIDE 200 MG/10 ML VIAL IV ONE (07:33)
[2024-07-27] MEDS ORDERED: GLYCOPYRROLATE 0.2 MG/ML 2 ML VIAL ONE (07:33)
[2024-07-27] MEDS ORDERED: PROPOFOL 10 MG/ML 20 ML VIAL IV ONE (07:33)
[2024-07-27] MEDS ORDERED: HYDROmorphone (PF) 1 MG/ML ONE (07:33)
[2024-07-27] MEDS ORDERED: ROCURONIUM 10 MG/ML (5 ML VIAL) IV ONE (07:33)
[2024-07-27] MEDS ORDERED: LIDOCAINE 1% INJ 10MG/ML (20 ML MDV) ONE (07:33)
[2024-07-27] MEDS ORDERED: NEOSTIGMINE 1 MG/ML 10 ML VIAL ONE (07:33)
[2024-07-27] MEDS ORDERED: fentaNYL (PF) 50 MCG/ML 2 ML AMP ONE (07:33)
[2024-07-27] MEDS: BUPIVACAINE (PF) 0.25% 30 ML VIAL SQ ONE ×2 (08:34→09:00)
[2024-07-27] MEDS: LACTATED RINGERS 1,000 ML IV ONE (09:25)
[2024-07-27] MEDS ORDERED: Acetaminophen-Codeine 300-30mg TAB PO PRN ×2 (09:36)
[2024-07-27] MEDS ORDERED: diphenhydrAMINE 50 MG/ML 1 ML VIAL IVP PRN (09:36)
--- NOTE | 2024-07-27 09:44 | P.OP ---
Date of Procedure: 07/27/24 Preoperative Diagnosis: Heavy menstrual bleeding, dysmenorrhea, enlarged uterus, breast cancer survivor on tamoxifen Postoperative Diagnosis: Same Procedure(s) Performed: Robotic assisted vaginal hysterectomy, bilateral salpingectomy, diagnostic cystoscopy Anesthesia: FLAVIAA Surgeon: Adelina Sims Rotary Soil Stabilizer Operator #1: Michelle Sanchez Estimated Blood Loss (ml): 50 IV fluids (ml): 650 Urine output (ml): 150 Pathology: other (Uterus cervix bilateral fallopian tubes) Condition: stable Disposition: PACU Indications for Procedure: Heavy menstrual bleeding, breast cancer survivor on tamoxifen not a candidate for endometrial ablation. Negative genetic screening after diagnosis, ovaries remain in situ given patient's age Operative Findings: Globular enlarged uterus is appreciated, normal ovaries bilaterally. On cystoscopy bladder mucosa appears normal both ureteral orifices were spilling clear yellow urine. Hoff was draining clear urine throughout the procedure. Description of Procedure: Patient was taken back to the operating suite where general anesthesia was obtained without difficulty by the anesthesia department. She was prepped and draped in normal sterile fashion in the dorsolithotomy position. A Hoff catheter was placed under sterile technique. A weighted speculum is placed in the posterior vaginal vault, the anterior lip of the cervix was visualized grasped with a single-tooth tenaculum. The endocervical canal was then serially dilated. A Idea2 uterine manipulator was advanced into the uterus as a means to manipulate the uterus throughout the procedure. The balloon was insufflated with air and the cap was placed snugly against the cervix. All instruments were then removed from the patient's vaginal vault. Attention was then turned to the patient's abdomen where approximately 2 fingerbreadths above the umbilicus a small skin incision is made. Through this incision the Veress needle was placed. Once the Veress needle was deemed to be in the appropriate position with a drop of CO2 pressure CO2 insufflation was allowed to occur. Approximately 3 L of gas were used to obtain pneumoperitoneum. At this time an 8 mm trocar and sleeve was placed through the skin incision and toward the pneumoperitoneum with the laparoscope in place. The above-noted findings are visualized. At this time the additional port sites are placed at 10 cm lateral and 3 cm inferior to midline port these are 8 mm ports and placed under direct visualization. In the left upper quadrant a 12 mm skin incision is made and a 12 mm trocar and sleeve is placed through the skin incision and into the abdomen via direct vision visualization. The da Christ is docked in the usual fashion and in the right operative arm the monopolar scissors is placed in the left operative arm the bipolar forceps is placed. Attention then turned to the patient's left fallopian tube which was elevated and the mesosalpinx was transected to the level of the utero-ovarian ligament. This was coagulated distally and proximally and divided. The round ligament was then visualized coagulated and transected hemostasis was appreciated. The bladder flap from the left was then created using sharp and blunt dissection. The ascending branch of the uterine artery was visualized, coagulated distally approximately and transected. Attention then turned to the patient's right fallopian tube which was elevated the mesosalpinx was coagulated and transected to the level of the utero-ovarian ligament which was coagulated distally and proximally and divided. The round ligament was visualized coagulated distally and proximally and divided. Hemostasis was noted. The ascending branch of the uterine artery from the right was visualized coagulated and transected. The bladder flap from the right was created using sharp and blunt dissection. Once the bladder was far away from the operating field any further vasculature was coagulated and transected. At this point the only remaining attachment was a vaginal attachment therefore colpotomy incision was made in a circumferential fashion. The uterus bilateral fallopian tubes and cervix was delivered through the vaginal opening. The pelvis was then copiously irrigated. Any points of bleeding were made hemostatic with the monopolar scissors. The vaginal cuff was then closed with multiple [id number] sutures of 0 Vicryl. Approximately 4 sutures were used to obtain closure. The pelvis was then irrigated and the vaginal cuff was noted to be hemostatic. At this time all instruments were removed and the patient's abdomen. Attention then turned to the patient's Hoff catheter which was noted to be draining clear yellow urine. A cystoscopy was performed. Cystoscope was placed through the urethra and toward the bladder bladder bubble was appreciated complete survey of the bladder mucosa revealed an intact cavity, both ureteral orifices were noted to be spilling clear yellow urine. The cystoscopy scope was removed and the Hoff catheter was replaced. Attention was then turned to the patient's abdomen where the skin incisions were closed with 4-0 Vicryl in a subcuticular fashion. Steri-Strips and sterile dressings were applied. All counts were noted be correct x 2 at the end of the procedure. Patient tolerated procedure well and was taken the recovery room awake in stable condition.
[2024-07-27] MEDS: ACETAMINOPHEN IV (For NPO) 1,000 MG in EMPTY BAG 1 BAG IVPB ONE (11:53)
[2024-07-27] MEDS: ONDANSETRON 4 MG/2 ML VIAL IVP PRN (15:45)
[2024-07-27] MEDS: KETOROLAC 15 MG/ML 1 ML VIAL IVP PRN (21:39)
[2024-07-27] MEDS: SENNOSIDES-DOCUSATE SODIUM 1 EACH TAB PO SCH (22:56)
[2024-07-27] MEDS: SCOPOLAMINE 1 MG/72 HR PATCH TRANSDERM ONE (22:56)
[2024-07-28] MEDS: ACETAMINOPHEN IV (For NPO) 1,000 MG in EMPTY BAG 1 BAG IVPB STA (02:40)
[2024-07-28] MEDS: IBUPROFEN 600 MG TAB PO PRN (05:29)
[2024-07-28] MEDS: SIMETHICONE 80 MG CHEWABLE PO PRN (05:29)
[2024-07-28 05:58] LABS: Basophils % (A) 0 %; Eosinophils # (A) 0.1 k/uL (0-0.7); Eosinophils % (A) 1 %; HCT 32.6 % (34.0-46.0); HGB 10.7 gm/dL (11.4-16.0); Lymphocytes % (A) 19 %; MCH 29.6 pg (25.0-35.0); MCV 89.8 fL (80.0-100.0); Mean Platelet Volume 8.6; Monocytes # (A) 0.4 k/uL (0-1.0); Monocytes % (A) 4 %; Neutrophils % (A) 75 %; Platelet Count 253 k/uL (150-450); RBC 3.63 m/uL (3.80-5.40); RDW 13.7 % (11.5-15.5); WBC 10.7 k/uL (3.8-10.6)
[2024-07-28] MEDS: ACETAMINOPHEN TAB 325 MG TAB PO PRN (07:59)
[2024-07-28] MEDS: TAMOXIFEN 10 MG TAB PO SCH (08:00)
[2024-07-28 08:21] VITALS: BP 108/64; PULSE 77; RESP 16; TEMP 98.6
--- NOTE | 2024-07-28 08:40 | P.DS ---
Providers Date of admission: 07/28/2024 Expected date of discharge: 07/28/24 Attending physician: Adelina Sims Primary care physician: Will Miller - Discharge Diagnosis(es) (1) Enlarged uterus Current Visit: Yes Status: Acute (2) Dysmenorrhea Current Visit: Yes Status: Acute (3) Menorrhagia Current Visit: Yes Status: Acute Hospital Course: 44-year-old female that presented yesterday to the hospital on 07/27 for scheduled robotic assisted vaginal hysterectomy, bilateral salpingectomy, diagnostic cystoscopy. Patient had a known history of heavy menstrual bleeding and pelvic pain. Patient on ultrasound had an enlarged uterus at 10 cm in nature. Patient has a history of breast cancer and is on tamoxifen. Full details in this patient please the dictated history and physical. She is not a candidate for en dometrial ablation given uterine size and tamoxifen use. Patient request definitive treatment for symptoms. Patient was taken back to the operating room where robotic assisted vaginal hysterectomy, bilateral salpingectomy, diagnostic cystoscopy was performed without difficulty. For full details on the procedure please see the dictated report. Patient's postoperative course has been essentially uneventful. She has noted some nausea but it has been controlled with Zofran as needed. Patient is tolerating crackers. She denies vomiting. She is ambulating and voiding without difficulty. She denies vaginal bleeding. She states her pain is well- controlled. She would like discharge home when possible. Patient Condition at Discharge: Good Plan - Discharge Summary Discharge Rx Participant: Yes New Discharge Prescriptions: No Action Tamoxifen Citrate [Nolvadex] 20 mg PO DAILY miSOPROStoL 200 mcg PO ONCE Lisdexamfetamine Dimesylate [Vyvanse] 60 mg PO DAILY Discharge Medication List Tamoxifen Citrate [Nolvadex] 20 mg PO DAILY 06/21/23 [History] Lisdexamfetamine Dimesylate [Vyvanse] 60 mg PO DAILY 07/21/24 [History] miSOPROStoL 200 mcg PO ONCE 07/21/24 [History] Follow up Appointment(s)/Referral(s): Adelina Sims DO [Doctor of Osteopathic Medicine] - 2 Weeks Patient Instructions/Handouts: Laparoscopic Hysterectomy (DC), Laparoscopic Hysterectomy (GEN) Activity/Diet/Wound Care/Special Instructions: No intercourse, tampons or tub baths. No heavy lifting greater than a gallon of milk. No driving for two weeks. Call with any fever, shakes or chills, with any pain not alleviated by over the counter meds, or with any questions or concerns. [id number]-ynl-[id number] ibuprofen 600 mg or 3 tablets every 6 hours as needed for pain. [id number] senna S as needed for constipation symptoms. Discharge Disposition: HOME SELF-CARE
--- NOTE | 2024-07-28 11:12 | P.PN ---
Progress Note - Text Progress Note Date: 07/28/24 Postoperative day 1 status post both active assisted vaginal hysterectomy under general endotracheal anesthesia anesthesia, and intrathecal morphine given for postoperative analgesia, patient doing well, there is no anesthesia related complications, Patient had no headache, vital signs stable , Assessment and plan= postop day 1 status post robotic assisted vaginal hysterectomy, doing well there is no anesthesia related complication.
== END 2024-07-28 11:26 | disposition home or self-care (01) ==
LOC: OR 05:51 → 4FBP 09:27 → OR 07-28 11:26
PROVIDERS: ATTEND Obstetrics & Gynecology Obstetrics
DX: N92.0 Excessive and frequent menstruation with regular cycle (principal); N94.6 Dysmenorrhea, unspecified; C50.919 Malignant neoplasm of unspecified site of unspecified female breast; D25.1 Intramural leiomyoma of uterus; N80.03 Adenomyosis of the uterus; E78.5 Hyperlipidemia, unspecified; G89.18 Other acute postprocedural pain; R00.1 Bradycardia, unspecified; R47.1 Dysarthria and anarthria; F90.9 Attention-deficit hyperactivity disorder, unspecified type; Z79.810 Long term (current) use of selective estrogen receptor modulators (SERMs); Z79.899 Other long term (current) drug therapy
CPT/HCPCS: 58552; S2900; 81025; 85025; 88307

== ENCOUNTER → 2025-03-03 | Outpatient (CLI) | payer BC ==
--- NOTE | 2025-03-09 12:22 | MM ---
Reason for Exam: Screening (asymptomatic). Last screening mammogram was performed 12 month(s) ago. Patient History: Menarche at age 12. First Full-Term at age 19. Hysterectomy at age 44. Premenopausal. Breast cancer, left, age 41. Hormonal Contraceptives, from age 18 until age 40. 2021, Lumpectomy on the Left side. 2021, Radiation Therapy on the left side. Paternal grandmother had breast cancer, age 75. Prior Study Comparison: 02/06/2022 Left Diagnostic Mammogram, Unknown. 09/18/2022 Left Diagnostic Mammogram, [facility]. 02/17/2024 Bilateral MG 3D screening mammo w/cad, [facility]. Tissue Density: The breasts are heterogeneously dense, which may obscure small masses. Findings: Analyzed By CAD. There is no suspicious group of microcalcifications or new suspicious mass in either breast. Overall Assessment: Negative, BI-RAD 1 Management: Screening Mammogram of both breasts in 1 year. . Patient should continue monthly self-breast exams. A clinical breast exam by your physician is recommended on an annual basis. This exam should not preclude additional follow-up of suspicious palpable abnormalities. Note on Deena scores and lifetime risk: 1. A Deena score greater than 3% is considered moderate risk. If this is the case, consider specialist referral to assess eligibility for a risk reducing agent. 2. If overall lifetime risk for the development of breast cancer is 20% or higher, the patient may qualify for future screening with alternating mammogram and breast MRI. [facility], , 03/03/2025 2:19 PM. Electronically signed and approved by: Mustapha Zayas M.D. [facility]
== END | disposition home or self-care (01) ==
LOC: RADMAMWWP 14:05
PROVIDERS: ATTEND Internal Medicine
DX: Z12.31 Encounter for screening mammogram for malignant neoplasm of breast (principal); D05.12 Intraductal carcinoma in situ of left breast; J45.909 Unspecified asthma, uncomplicated; Z71.3 Dietary counseling and surveillance; R92.333 Mammographic heterogeneous density, bilateral breasts; Z92.0 Personal history of contraception; Z80.3 Family history of malignant neoplasm of breast; Z85.3 Personal history of malignant neoplasm of breast
CPT/HCPCS: 77063; 77067